=== PATIENT | male | born 1960 | race Hispanic/Latino ===

== ENCOUNTER → 2022-01-12 | Outpatient (CLI) | payer OTHER ==
[~2022-01-12] MED LIST: REGADENOSON 0.4 MG/5 ML PF SYG IVP SCH
== END | disposition home or self-care (01) ==
LOC: RAH 12-24 08:50
PROVIDERS: ATTEND Family Medicine
DX: R07.9 Chest pain, unspecified (principal); R94.39 Abnormal result of other cardiovascular function study
CPT/HCPCS: 78452; 93017; 96374; A9500 ×2; J2785

== ENCOUNTER 2022-01-26 05:48 | Observation (INO) | payer OTHER ==
[2022-01-20 10:03] LABS: EOSINOPHILS % (AUTO) 5.8 % (0.0-8.0); HEMATOCRIT 46.3 % (42-54); LYMPHOCYTES % (AUTO) 29.5 % (21.0-51.0); MEAN CORPUSCULAR HEMOGLOBIN 27.9 pg (27.0-33.0); MEAN CORPUSCULAR HGB CONC 32.8 g/dL (32.0-36.0); MEAN CORPUSCULAR VOLUME 85.1 fL (79-99); MONOCYTES % (AUTO) 10.8 % (3.0-13.0); NEUTROPHILS % (AUTO) 52.6 % (40.0-77.0); PLATELET COUNT (AUTO) 230 K/uL (130-400); RED BLOOD CELL COUNT(AUTO) 5.44 MIL/uL (4.50-6.20); RED CELL DISTRIBUTION WIDTH 13.7 % (11.0-15.5); WHITE BLOOD COUNT (AUTO) 6.2 K/uL (4.8-10.8)
[2022-01-20 10:10] LABS: CREATININE 1.2 mg/dL (0.5-1.5)
[2022-01-20 10:12] LABS: APPEARANCE,URINE Clear (CLEAR); BILIRUBIN,URINE Negative (NEGATIVE); COLOR,URINE Dark Yellow (YELLOW); GLUCOSE, URINE (UA) >=1000 mg/dL (NEGATIVE); KETONES,URINE Negative (NEGATIVE); LEUKOCYTE ESTERASE ,URINE Negative (NEGATIVE); NITRATE,URINE Negative (NEGATIVE); OCCULT BLOOD,URINE Negative (NEGATIVE); PH,URINE 6.5 (5.0-8.0); PROTEIN,URINE Negative (NEGATIVE)
[2022-01-20 10:12] LABS: INR 1.04 (0.85-1.15); PROTHROMBIN TIME 11.3 SEC (9.6-11.6)
[2022-01-20 10:14] LABS: PARTIAL THROMBOPLASTIN TIME 29.3 SEC (26.3-35.5)
[2022-01-20 10:33] LABS: B-TYPE NATRIURETIC PEPTIDE 77 pg/mL (0-100)
[2022-01-20 10:33] LABS: BACTERIA,URINE Rare /HPF (None Seen); RBC,URINE 0-1 /HPF (0-1); SQUAMOUS EPITHELIAL CELL,UR Rare /HPF (0-2); WBC,URINE 0-1 /HPF (0-1)
[2022-01-23 08:44] VITALS: BP 134/72
[~2022-01-26] VITALS: Ht 167.6 cm; Wt 85.8 kg
[2022-01-26] VITALS (16 sets, daily range): BP systolic 99–145; BP diastolic 59–81
[~2022-01-26 05:48] MED LIST changes: +0.9% NACL 500ML IV.SOLN 500 ML IV SCH; +AEC81 PO; +EMPA25TA PO; +INSU3INS3 SQ; +METF-446 PO; +METO-409 PO; +OLME-9 PO; -REGADENOSON 0.4 MG/5 ML PF SYG IVP SCH; +ROSU10TA28 PO
[2022-01-26] MEDS ORDERED: 0.9%NACL 1000ML 1,000 ML IV ONE (07:02)
[2022-01-26] MEDS ORDERED: LIDOCAINE HCL 1% 10 ML VIAL ONE (07:10)
[2022-01-26] MEDS ORDERED: HEPARIN 10,000 UNIT/10ML (1,000 UNIT/ML) VIAL ONE (07:11)
[2022-01-26] MEDS ORDERED: NITROGLYCERIN 50MG VIAL ONE (07:11)
[2022-01-26] MEDS ORDERED: BIVALIRUDIN 250 MG/VIAL IV ONE ×2 (07:11→09:12)
[2022-01-26] MEDS ORDERED: IOHEXOL-350 50ML VIAL IV ONE ×2 (07:11→09:40)
[2022-01-26] MEDS ORDERED: FENTANYL CITRATE PF 50 MCG/1 ML 2ML VIAL ONE ×2 (07:12→10:16)
[2022-01-26] MEDS ORDERED: MIDAZOLAM HCL 1 MG/ML 2ML VIAL ONE (07:12)
[2022-01-26] MEDS ORDERED: IOHEXOL-350 75 ML VIAL IV ONE ×2 (07:12→08:15)
[2022-01-26] MEDS ORDERED: LABETALOL 20MG SYG IV ONE ×3 (08:16→10:15)
[2022-01-26] MEDS ORDERED: PRASUGREL HCL 10 MG TABLET ONE (08:26)
[2022-01-26] MEDS ORDERED: ASPIRIN 325MG EC TAB PO ONE (08:31)
[2022-01-26] MEDS: ***HM*** (Empagliflozin (Jardiance) 25 MG) PO SCH (08:47)
[2022-01-26] MEDS: LOSARTAN 100 MG TABLET PO SCH (08:48)
[2022-01-26] MEDS: PANTOPRAZOLE 40 MG TAB DR PO SCH (10:56)
[2022-01-26] MEDS: INSULIN GLARGINE 100 UNITS/ML 10 ML VIAL SQ SCH (10:58)
[2022-01-26] MEDS ORDERED: ONDANSETRON 4MG INJ IVP PRN (11:00)
[2022-01-26] MEDS ORDERED: NITROGLYCERIN 50MG/D5W 250ML 1 BOT IV PRN (11:00)
[2022-01-26] MEDS ORDERED: ACETAMINOPHEN WITH CODEINE 1 TAB TAB PO PRN ×2 (11:00)
[2022-01-26] MEDS ORDERED: 0.9%NACL 1000ML 1,000 ML IV SCH (11:00)
[2022-01-26] MEDS ORDERED: TEMAZEPAM 30 MG CAP PO PRN (11:00)
[2022-01-26] MEDS: METOPROLOL SUCCINATE 50 MG TAB.SR.24H PO SCH (11:01)
[2022-01-26] MEDS: HYDROCHLOROTHIAZIDE 25 MG TABLET PO SCH (11:07)
[2022-01-26] MEDS ORDERED: ASPIRIN 81 MG EC TAB PO SCH (11:09)
[2022-01-26] MEDS ORDERED: ATORVASTATIN 20 MG TABLET PO SCH (21:00)
[2022-01-27 03:41] VITALS: BP 120/66
[2022-01-27 05:06] LABS: HEMATOCRIT 39.4 % (42-54); MEAN CORPUSCULAR HEMOGLOBIN 26.9 pg (27.0-33.0); MEAN CORPUSCULAR HGB CONC 31.7 g/dL (32.0-36.0); MEAN CORPUSCULAR VOLUME 84.7 fL (79-99); RED BLOOD CELL COUNT(AUTO) 4.65 MIL/uL (4.50-6.20); RED CELL DISTRIBUTION WIDTH 13.6 % (11.0-15.5); WHITE BLOOD COUNT (AUTO) 7.7 K/uL (4.8-10.8)
[2022-01-27 05:20] LABS: CREATININE 1.1 mg/dL (0.5-1.5); POTASSIUM 3.5 mmol/L (3.5-5.1)
[2022-01-27] MEDS: PANTOPRAZOLE 40 MG TAB DR PO SCH (07:30)
[2022-01-27] MEDS ORDERED: PRAS10TA6 PO (08:24)
[2022-01-27] MEDS ORDERED: PRASUGREL HCL 10 MG TABLET PO SCH (09:00)
[2022-01-27] MEDS: ***HM*** (Empagliflozin (Jardiance) 25 MG) PO SCH (09:00)
[2022-01-27] MEDS ORDERED: ASPIRIN 81MG CHEW TAB PO SCH (09:00)
[2022-01-27] MEDS: HYDROCHLOROTHIAZIDE 25 MG TABLET PO SCH (09:25)
[2022-01-27] MEDS: LOSARTAN 100 MG TABLET PO SCH (09:25)
[2022-01-27] MEDS: METOPROLOL SUCCINATE 50 MG TAB.SR.24H PO SCH (09:26)
[2022-01-27] MEDS: INSULIN GLARGINE 100 UNITS/ML 10 ML VIAL SQ SCH (09:28)
[2022-01-27 11:45] VITALS: BP 111/67
== END 2022-01-27 11:00 | disposition home or self-care (01) ==
LOC: DAH 05:48 → DAHIP 05:49 → DAH 05:49 → DAHIP 05:50 → 4DH 14:22
PROVIDERS: ADMIT Internal Medicine; ATTEND Internal Medicine
DX: I25.110 Atherosclerotic heart disease of native coronary artery with unstable angina pectoris (principal); R94.39 Abnormal result of other cardiovascular function study; I25.10 Atherosclerotic heart disease of native coronary artery without angina pectoris; R94.31 Abnormal electrocardiogram [ECG] [EKG]; I10 Essential (primary) hypertension; E11.9 Type 2 diabetes mellitus without complications; E78.5 Hyperlipidemia, unspecified; Z87.891 Personal history of nicotine dependence
CPT/HCPCS: 36415 ×2; 71045; 80048 ×2; 80061; 81001; 82948 ×4; 83880; 85025; 85027; 85610; 85730; 93005 ×2; 93458; 96372; A4215; A4216; A4221; A4222; A4223 ×3; A4606; A4663; C1725 ×3; C1760; C1769 ×2; C1874; C1887 ×2; C1894 ×2; C9600 ×2; G0378 ×24; J0583 ×2; J1644 ×2; J1815; J2250; J3010 ×2; J3490 ×2; J7030; Q9967 ×4; 99156; 99157

== ENCOUNTER → 2022-12-14 | Outpatient (CLI) | payer OTHER ==
[~2022-12-14] MED LIST changes: -0.9% NACL 500ML IV.SOLN 500 ML IV SCH; +PRAS10TA6 PO
== END | disposition home or self-care (01) ==
LOC: SHCH 09:59
PROVIDERS: ATTEND Internal Medicine Cardiovascular Disease
DX: I73.9 Peripheral vascular disease, unspecified (principal)
CPT/HCPCS: 93925

== ENCOUNTER → 2024-12-18 | Outpatient (CLI) | payer OTHER ==
[~2024-12-18] MED LIST changes: +OLME-30 PO; -OLME-9 PO; -ROSU10TA28 PO; +ROSU10TA72 PO
--- NOTE | 2024-12-19 17:12 | HMCSR ---
APPROVED REPORT Height: 5 ft 5in Weight: 168 lbs TEST INDICATIONS CAD The imaging protocol used to acquire images was Rest Tc-99m/stress Tc-99m 1 day Consent: The procedure was explained and understood by the patient. Informerd consent was witnessed FREDA RobleroMT First, low dose rest was performed then high dose stress. RESTING DATA: The resting ekg shows: NSR Rest SPECT myocardial perfusion imaging was performed in supine position minutes following the intra venous injection of 10 mCi of Tc-99 Sestamibi. Time of rest injection: Time of rest imaging: Date: 12/18/2024 PHARMACOLOGIC STRESS: The images were gated to evaluate regional wall motion and calculate left ventricular ejection fracti on. EXERCISE STRESS: At peak stress, the patient was injected intravenously with 28mCi of Tc-99 Sestamibi. Time of stress injection: Date: 12/18/2024 Time of stress imaging: Date: 12/18/2024 Heart Rate at time of stress injection: 70 bpm. Patient continued to exercise for 1 minute(s). The images were gated to evaluate regional wall motion and calculate left ventricular ejection fracti on. STRESS DETAILS Reason for Termination: Infusion complete Stress Symptoms: Fatigue Max HR Achieved: 141 bpm % of APMHR Achieved: 106 Max Blood Pressure: 162/72 mmHg Exercise duration: 6 min Exercise capacity: 7.07METs Highest Stage Achieved: Stage 3: 3.4 mph at 14% grade. Stress ECG: NSR Maximum ST Depression: 0.5 mm Study quality was good. Lung uptake was Normal. Artifact: No artifact LEFT VENTRICLE The left ventricular ejection fraction was calculated to be >65%.TID = 0.82. IMPRESSION Abnormal pharmacologic nuclear stress test. Conclusion Abnormal [id number]-[id number] stress test with an LVEF >65% and a TID of 0.82 There is a medium sized apical and anteroseptal pefusion defect suggestive of ischemia.
== END | disposition home or self-care (01) ==
LOC: RAH 08:52
PROVIDERS: ATTEND Internal Medicine Cardiovascular Disease
DX: I25.10 Atherosclerotic heart disease of native coronary artery without angina pectoris (principal); R94.39 Abnormal result of other cardiovascular function study; R53.83 Other fatigue
CPT/HCPCS: 78452; 93017; A9500 ×2

== ENCOUNTER 2025-07-10 16:51 | Emergency (ER) | payer BC ==
[~2025-07-10] VITALS: Ht 165.1 cm; Wt 72.1 kg
[~2025-07-10 16:51] MED LIST changes: +ATOR40TA69 PO; +FURO20TA6 PO; +INSLAN SQ; -INSU3INS3 SQ; -METO-409 PO; +METO25 PO; -OLME-30 PO; -PRAS10TA6 PO; -ROSU10TA72 PO; +SEMA2PEN SQ
--- NOTE | 2025-07-10 17:33 | EKG ---
[facility] Test Date: 2025-07-10 Test Time: 17:31:14 Pat Name: RICHARD PERSAUD Department: 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 : 1960 Requested By: ADEBAYO VILLASEÑOR Order Number: [id number] Reading MD: Lucía Lee Measurements Intervals [place] Rate: 100 P: 56 [place]: 161 QRS: 36 QRSD: 82 T: 214 QT: 339 QTc: 432 Interpretive Statements Sinus rhythm Atrial premature complexes in couplets Abnormal T, consider ischemia, diffuse leads Compared to ECG 06/20/2025 23:23:08 Atrial premature complex(es) now present T-wave abnormality now present Possible ischemia now present Sinus tachycardia no longer present Electronically Signed On 07-12-2025 12:36:23 LEATHER SKINNER by Lucía Lee Please click the below link to view image of tracing.
[2025-07-10 17:43] LABS: IMMATURE GRANULOCYTE ABSOLUTE 0.02 K/uL (0-1); NUCLEATED RED BLOOD CELLS 0.0 % (0.0-0.19); PLATELET COUNT (AUTO) 571 K/uL (130-400); RED BLOOD CELL COUNT(AUTO) 3.95 MIL/uL (4.50-6.20); RED CELL DISTRIBUTION WIDTH 14.7 % (11.0-15.5); WHITE BLOOD COUNT (AUTO) 8.5 K/uL (4.8-10.8)
[2025-07-10 17:52] LABS: CREATININE 1.0 mg/dL (0.5-1.3); GLOMERULAR FILTR. RATE CALC 85.0 mL/min (>90); GLUCOSE,RANDOM 76.0 mg/dL (70-105); SODIUM SERUM 136.0 mmol/L (136-145); UREA NITROGEN, BLOOD 17.0 mg/dL (7-18)
[2025-07-10 18:01] LABS: CREATINE KINASE, TOTAL 33.0 U/L (21-232)
--- NOTE | 2025-07-10 19:10 | NUR ---
ASSUMED PT CARE AT THIS TIME
[2025-07-10] MEDS: ASPIRIN 325MG TAB PO ONE (19:40)
--- NOTE | 2025-07-10 19:46 | HMCIMG ---
EXAM: CR Chest, 1 View. CLINICAL HISTORY: cp COMPARISON: None provided. FINDINGS: LUNGS: No active infiltrate PLEURAL SPACES: No evidence of pleural effusion or pneumothorax. MEDIASTINUM: Prominent cardiac silhouette Status post median sternotomy BONES: No acute osseous abnormality. IMPRESSION: 1. Prominent cardiac silhouette 2. Status post median sternotomy 3. No active infiltrate /[place]
--- NOTE | 2025-07-10 20:07 | ERN ---
General Chief Complaint: Hypertension Stated Complaint: HTN Time Seen by MD: 17:17 Time Seen by Midlevel: 17:17 Source: patient History of Present Illness Initial Comments 64-year-old male presents to the emergency department for evaluation of an elevated blood pressure reading. 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 He received a blood pressure read of over 160 systolic so he was advised to report to the ER for further evaluation. The patient reports having open heart surgery three weeks ago. On arrival he denies any chest pain. Allergies: Coded Allergies: naproxen (Unverified Allergy, Intermediate, RASH, 06/19/25) No Known Drug Allergies (Unverified Allergy, Unknown, 06/15/25) Home Meds Active Scripts Metoprolol Tartrate (Lopressor) 25 Mg Tab, 25 MG PO BID, #60 TAB Prov:TIN DOYLE 06/25/25 Furosemide (Lasix 20Mg Tab) 20 Mg Tablet, 20 MG PO BID@, #60 TAB Prov:TIN DOYLE 06/25/25 Atorvastatin Calcium (LIPITOR) 40 Mg Tablet, 40 MG PO HS, #30 TAB Prov:TIN DOYLE 06/25/25 Reported Medications Semaglutide (Ozempic) 2 Mg/0.75 Ml (8 Mg/3 Ml) Pen.injctr, 4 MG SQ QWEEK 06/15/25 Insulin Glargine,Hum.rec.anlog (Lantus) 100 Unit/Ml Inj, 30 UNITS SQ AM, ML 06/15/25 Empagliflozin (Jardiance) 25 Mg Tablet, 25 MG PO DAILY, TAB 01/23/22 Metformin HCl (Metformin HCl) 1,000 Mg Tablet, 1000 MG PO BID, TAB 01/23/22 Aspirin (ASPIRIN 81 MG ECTAB) 81 Mg Ectab, 81 MG PO DAILY, TAB.EC 01/23/22 Past Medical History Past Medical History: CAD, Diabetes-Type II, High Cholesterol, Hypertension Past Surgical History: Appendectomy ROS Dictation CONSTITUTIONAL: Negative except for HPI HEAD/FACE: Negative except for HPI EENT: Negative except for HPI RESPIRATORY: Negative except for HPI GASTROINTESTINAL/ABDOMINAL: Negative except for HPI GENITOURINARY: Negative except for HPI MUSCULOSKELETAL: Negative except for HPI INTEGUMENTARY: Negative except for HPI NEUROLOGICAL/PSYCH: Negative except for HPI HEMATOLOGIC/LYMPHATIC: Negative except for HPI All Systems Negative, Except as noted above. 13 point review of systems assessed and all negative except for above. Physical Exam Physical Exam Dictation Vital Signs reviewed General Appearance: Alert, oriented x 3, no acute distress, well developed, nourished. Head and Face: non-traumatic. Eyes: PERRL, pink conjunctivas, eyelid no trauma, anterior chamber with arcus senilis. Ears: Pinnas intact and no signs of trauma or erythema ear canals clear and no discharge TM no erythema Nose: No discharge, no bleeding. Oropharynx: Mouth normal, tongue pink, pharynx clear,no erythema, tonsils no exudates, no abscesses noted, mucous membrane moist Neck: Supple, non-tender, no thyromegaly, no masses, no JVD, no bruits Breast:Deferred Chest:No tenderness, no crepitus, no paradoxical movement, no retractions Lungs:Clear, well-ventilated, symmetric, no rales, no wheezing, no rhonchi, no stridor, good breath sounds bilaterally Heart: Regular rate, regular rhythm, no murmur, no gallops Vascular: no peripheral edema, Abdomen: Soft, positive bowel sounds, nondistended, no guarding, nontender, no rebound, no masses no hepatomegaly, no splenomegaly, no Lua's sign, no hernias. Rectal: Deferred Genital: Deferred Neurological: Normal speech, motor function intact, sensory function intact Musculoskeletal: Neck nontender, full range of motion, back nontender, full range of motion, Extremities: nontender, full range of motion Skin: Color pink, dry, no turgor, no rash, no lacerations, no abrasions, no contusions. Lymphatic: Deferred Results Laboratory and Microbiology Lab and Micro Result Laboratory Tests Test 07/10/25 17:36 White Blood Count 8.5 K/uL (4.8-10.8) Red Blood Count 3.95 MIL/uL (4.50-6.20) L Hemoglobin 10.5 g/dL (14.0-18.0) L Hematocrit 34.8 % (42-54) L Mean Corpuscular Volume 88.1 fL (79-99) Mean Corpuscular Hemoglobin 26.6 pg (27.0-33.0) L Mean Corpuscular Hemoglobin Concent 30.2 g/dL (32.0-36.0) L Red Cell Distribution Width 14.7 % (11.0-15.5) Platelet Count 571 K/uL (130-400) H Mean Platelet Volume 9.7 fL (7.5-10.5) Immature Granulocyte % (Auto) 0.2 % (0-1) Neutrophils (%) (Auto) 53.3 % (40.0-77.0) Lymphocytes (%) (Auto) 22.2 % (21.0-51.0) Monocytes (%) (Auto) 6.1 % (3.0-13.0) Eosinophils (%) (Auto) 17.4 % (0.0-8.0) H Basophils (%) (Auto) 0.8 % (0.0-5.0) Neutrophils # (Auto) 4.5 K/uL (1.8-7.7) Lymphocytes # (Auto) 1.9 K/uL (1.0-4.8) Monocytes # (Auto) 0.5 K/uL (0.1-1.0) Eosinophils # (Auto) 1.47 K/uL (0.00-0.70) H Basophils # (Auto) 0.07 K/uL (0.00-0.20) Absolute Immature Granulocyte (auto 0.02 K/uL (0-1) Nucleated Red Blood Cells 0.0 % (0.0-0.19) White Cell Morphology Comment See comments Red Blood Cell Morphology See comments Sodium Level 136 mmol/L (136-145) Potassium Level 3.5 mmol/L (3.5-5.1) Chloride Level 100 mmol/L (101-111) L Carbon Dioxide Level 25 mmol/L (21-32) Blood Urea Nitrogen 17 mg/dL (7-18) Creatinine 1.0 mg/dL (0.5-1.3) Glomerular Filtration Rate Calc 85 mL/min (>90) Random Glucose 76 mg/dL (70-105) Total Calcium 8.4 mg/dL (8.5-10.1) L Magnesium Level 1.90 mg/dL (1.80-2.40) Total Creatine Kinase 33 U/L (21-232) Troponin I High Sensitivity 118 ng/L (4-75) *H B-Type Natriuretic Peptide 253 pg/mL (0-100) H Labs Reviewed?: Yes MDM MDM: 64-year-old male presents to the emergency department for evaluation of an elevated blood pressure reading. Patient states he was not feeling well so he c alled his insulation board calender operator office who asked him to check his blood pressure. He received a blood pressure read of over 160 systolic so he was advised to report to the ER for further evaluation. The patient reports having open heart surgery three weeks ago. On arrival he denies any chest pain. On physical examination the patient is in no acute distress. Initial vital signs are stable. His examination reveals a postsurgical scar to the chest which appears to be healing well with no signs of infection. Cardiac workup was initiated. Initial troponin was elevated at 118. Initial EKG revealed normal sinus rhythm with a ventricular rate of 100 beats per minute. No ST elevations noted. Repeat troponin was ordered. I discussed lab and imaging findings with the patient and plan to admit. The patient's stating he does not want to be admitted to the hospital and would like to sign out against medical advice. Risks were discussed. Family was at bedside encouraging him to stay but ultimately he decided to sign out against medical advice. He did wait for his 2nd troponin Differential diagnosis: Acute coronary syndrome, electrolyte abnormality, anemia Rationale: Tests considered and ordered secondary to shared decision making include: Previous outside records reviewed: Old ER visits. Risk of complication and/or morbidity or mortality of patient management: None Medications-Per medication reconciliation Need for hospitalization: Patient does meet criteria for hospitalization. Need for emergency major/minor surgery: No There are no social concerns with this patient. Prescription drug management Prescriptions will include symptomatic care Patient's prior external medical records from other ER visits were reviewed by me as indicated. Prior testing and results from previous visits were reviewed. Prior tests were taken into account with medical decision making and resource utilization, independent historian/historians were used to obtain complete medical history. I independently interpreted the test that were performed, results were reviewed by me and considered findings on radiology if ordered. Medical management and examination interpretation discussions were had by me with other qualified healthcare professionals as indicated for the patient's care. ED Course Orders Procedure Category Date Status Time 12 Lead Ekg Tracing- EKG 07/10/25 Complete Technical 17:23 Cbc With Differential LAB 07/10/25 Complete 17:23 Basic Metabolic Panel LAB 07/10/25 Complete 17:23 B-Type Natriuretic LAB 07/10/25 Complete Peptide 17:23 Creatine Kinase, Total LAB 07/10/25 Complete 17:23 Magnesium LAB 07/10/25 Complete 17:23 Troponin I High LAB 07/10/25 Complete Sensitivity 17:23 Chest 1vw RAD 07/10/25 Resulted 17:23 Aspirin 325mg Tab PHA 07/10/25 Complete (Aspirin 325mg Tab) 18:30 Troponin I High LAB 07/10/25 In Process Sensitivity 18:10 12 Lead Ekg Tracing- EKG 07/10/25 Logged Technical 18:10 Current Medications Medications (Trade) Dose Ordered Sig/Rhett Route PRN Reason Start Time Stop Time Status Last Admin Dose Admin Aspirin (Aspirin 325mg Tab) 325 mg ONCE ONCE PO 07/10/25 18:30 07/10/25 18:31 DC 07/10/25 19:40 Vital Signs Date Time Temp Pulse Resp B/P (MAP) Pulse Ox O2 Delivery O2 Flow Rate FiO2 07/10/25 19:20 98.1 92 14 155/85 100 Room Air* 0 21 07/10/25 16:52 97.9 95 18 166/75 100 Room Air DX & DISP Disposition: AMA Departure Impression: Primary Impression: Elevated troponin Condition: Stable Referrals: IAN THOMAS MD (PCP) I have reviewed the case, and I agree with, Diagnosis and Plan I performed the substantive portion of the visit. I have reviewed and personally made and approve the management plan that is documented in the note by myself or the DAMASO. I acknowledge for responsibility for the patient's management plan. ADEBAYO VILLASEÑOR PAC Jul 10, 2025 20:07
[2025-07-10 21:18] VITALS: BP 152/84; PULSE 90; RESP 14; TEMP 98.2; O2SAT 100
--- NOTE | 2025-07-10 21:22 | NUR ---
PATIENT REFUSED TO BE ADMITTED TO HOSPITAL ADVICED BY MIDLEVEL CHARLEEN VERGARA, STATED HE WILL BE LEAVING AGAINST MEDICAL ADVICE, PATIENT WAS EDUCATED ON AND VERBALIZED UNDERTANDING OF THE RISKS AND CONSEQUENCES INVOLVED IN LEAVING THE HOSPITAL AT THIS TIME, THE BENEFITS OF CONTINUED TREATMENT AND HOSPILIZATION, PATIENT'S AT BEDISE. AMA FORM SIGNED BY PATIENT. PATIENT ADVICED TO SEEK EMERGENCY HELP IF NEEDED AND FOLLOW UP WITH PCP. ANA NURSE MADE AWARE.
--- NOTE | 2025-07-11 05:06 | EKG ---
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: [id number] : 1960 Requested By: ADEBAYO VILLASEÑOR Order Number: [id number] Reading MD: Lucía Lee Measurements Intervals [place] Rate: 89 P: 60 [place]: 171 QRS: 34 QRSD: 81 T: 206 QT: 342 QTc: 410 Interpretive Statements Sinus rhythm Atrial premature complexes in couplets Low voltage, extremity leads Nonspecific T abnrm, anterolateral leads Compared to ECG 07/10/2025 17:31:14 Low QRS voltage now present T-wave abnormality no longer present Possible ischemia no longer present Electronically Signed On 07-12-2025 12:35:58 COMMUNICATIONS PROGRAM MANAGER by Lucía Lee Please click the below link to view image of tracing.
== END 2025-07-10 21:25 | disposition left against medical advice (07) ==
LOC: EDH 16:51
DX: R79.89 Other specified abnormal findings of blood chemistry (principal); E11.9 Type 2 diabetes mellitus without complications; E78.00 Pure hypercholesterolemia, unspecified; I10 Essential (primary) hypertension; I25.10 Atherosclerotic heart disease of native coronary artery without angina pectoris; Z79.82 Long term (current) use of aspirin; Z79.84 Long term (current) use of oral hypoglycemic drugs; Z79.85 Long-term (current) use of injectable non-insulin antidiabetic drugs; Z79.899 Other long term (current) drug therapy; Z88.6 Allergy status to analgesic agent; Z90.49 Acquired absence of other specified parts of digestive tract; Z98.890 Other specified postprocedural states
CPT/HCPCS: 36415; 71045; 80048; 82550; 83735; 83880; 84484; 85025; 93005; 99284